=== PATIENT | female | born 1990 | race Caucasian/White ===

== ENCOUNTER 2023-01-12 20:34 | Emergency (ER) | payer BC, OTHER ==
[2023-01-12] MEDS ORDERED: traMADol HCl 50 MG TAB ONE (22:13)
[2023-01-12] MEDS ORDERED: Ketorolac Tromethamine 30 MG/ML VIAL ONE (22:14)
[2023-01-12] MEDS ORDERED: Clindamycin 150 MG CAP ONE (22:14)
== END 2023-01-12 22:21 | disposition home or self-care (01) ==
LOC: CSHERS 20:34
DX: K03.81 Cracked tooth (principal)
CPT/HCPCS: 96372; 99282; J1885